=== PATIENT | male | born 1985 | race Caucasian/White ===

== ENCOUNTER 2018-07-29 12:54 | Emergency (ER) | payer MEDICAID ==
[~2018-07-29] VITALS: Ht 180.3 cm; Wt 130.2 kg
[2018-07-29] MEDS ORDERED: SULFAMETH./TRIMETHOPRIM DS 800MG/160MG TABLET PO ONE (14:00)
[2018-07-29] MEDS ORDERED: IBUPROFEN 600 MG TABLET PO ONE (14:00)
[2018-07-29] MEDS ORDERED: CEPHALEXIN 500 MG CAPSULE PO ONE (14:00)
--- NOTE | 2018-07-29 14:09 | NUR ---
PT TO ROOM FROM LOBBY, GAIT STEADY.
[2018-07-29] MEDS ORDERED: LIDOCAINE-MPF 1%, 2ML ONE (14:21)
[2018-07-29] MEDS ORDERED: LIDOCAINE-MPF 1%, 5ML INFIL ONE (14:30)
--- NOTE | 2018-07-29 14:59 | NUR ---
SBAR report received from RN, Macho.
[2018-07-29] MEDS ORDERED: SULFAMETH./TRIMETHOPRIM DS 800MG/160MG TABLET ONE (15:12)
[2018-07-29] MEDS ORDERED: IBUPROFEN 200 MG TABLET ONE (15:12)
--- NOTE | 2018-07-29 15:16 | NUR ---
Pt medicated per MAR.
[2018-07-29 15:17] VITALS: BP 157/83
--- NOTE | 2018-07-29 15:22 | NUR ---
Patient/Caregiver given discharge instructions and they have confirmed that they understand the instructions. Patient ambulatory with steady gait.
== END 2018-07-29 15:23 | disposition home or self-care (01) ==
LOC: ED 15:21
DX: H66.42 Suppurative otitis media, unspecified, left ear (principal); I10 Essential (primary) hypertension
CPT/HCPCS: 10060; 99283